=== PATIENT | female | born 1975 | race African-American/Black ===

== ENCOUNTER 2021-11-30 01:05 | Emergency (ER) | payer OTHER ==
[~2021-11-30] VITALS: Ht 152.4 cm; Wt 62.5 kg
[2021-11-30] MEDS ORDERED: ACETAMINOPHEN 325MG TABLET PO ONE (03:30)
[2021-11-30 03:36] LABS: BASOPHILS % 0.5 % (0.0-2.0); EOSINOPHILS % 0.3 % (0.0-5.0); HEMATOCRIT. 35.6 % (36.0-48.0); HEMOGLOBIN. 11.9 g/dL (12.0-16.0); LYMPHOCYTES % 15.2 % (20.0-50.0); MEAN CORPUSCULAR HEMOGLOBIN 31.8 pg (28.0-32.0); MEAN PLATELET VOLUME 7.8 fl (7.4-10.4); MONOCYTES % 6.3 % (2.0-8.0); NEUTROPHILS % 77.7 % (40.0-76.0); PLATELET 394 x1000/uL (130-400); RED BLOOD CELL COUNT 3.74 mill/uL (4.2-5.4); RED CELL DISTRIBUTION WIDTH 12.3 % (11.6-14.6)
[2021-11-30 03:56] LABS: CHLORIDE 102 mEq/L (98-107)
[2021-11-30 04:17] LABS: B-HCG QUANTITATIVE 49627 mIU/mL (<3)
[2021-11-30 05:41] VITALS: BP 147/65
[2021-11-30] MEDS ORDERED: TOPUD MT (21:37)
== END 2021-11-30 05:43 | disposition home or self-care (01) ==
LOC: ER 01:05
DX: O26.891 Other specified pregnancy related conditions, first trimester (principal); Z3A.11 11 weeks gestation of pregnancy; E11.9 Type 2 diabetes mellitus without complications; Z98.890 Other specified postprocedural states
CPT/HCPCS: 36415; 76705; 76801; 76815; 80053; 81025; 82962; 84702; 85025; 86850; 86900; 93005; 93880; 99284

== ENCOUNTER 2021-11-30 14:51 | Emergency (ER) | payer OTHER ==
[~2021-11-30] VITALS: Ht 152.4 cm; Wt 62.5 kg
[2021-11-30] MEDS ORDERED: ACETAMINOPHEN 325MG TABLET PO STA (16:47)
[2021-11-30] MEDS ORDERED: ONDANSETRON HCL 4MG/2ML INJ IV STA (16:57)
[2021-11-30] MEDS ORDERED: MORPHINE SULFATE 4 MG/ML CPJ (NOT FOR IM USE) IV STA (16:57)
[2021-11-30] MEDS ORDERED: SODIUM CHLORIDE 0.9% 1,000 ML IV ONE (17:00)
[2021-11-30 17:19] LABS: CLARITY URINE CLEAR (CLEAR); COLOR URINE YELLOW (YELLOW); KETONES URINE 2+ (NEGATIVE); LEUKOCYTE ESTERASE URINE NEGATIVE (NEGATIVE); NITRITE URINE NEGATIVE (NEGATIVE); OCCULT BLOOD URINE NEGATIVE (NEGATIVE); PH URINE 5.5 (4.5-8.0); PROTEIN URINE TRACE (NEGATIVE); SPECIFIC GRAVITY URINE 1.032 (1.005-1.030)
[2021-11-30 17:31] VITALS: BP 139/84
[2021-11-30 17:52] LABS: CHLORIDE 101 mEq/L (98-107)
[2021-11-30 17:55] LABS: BASOPHILS % 0.4 % (0.0-2.0); HEMATOCRIT. 37.8 % (36.0-48.0); HEMOGLOBIN. 12.8 g/dL (12.0-16.0); LYMPHOCYTES % 10.6 % (20.0-50.0); MEAN CORPUSCULAR HEMOGLOBIN 32.3 pg (28.0-32.0); MEAN CORPUSCULAR VOLUME 94.8 fL (81.0-99.0); MEAN PLATELET VOLUME 7.6 fl (7.4-10.4); MONOCYTES % 4.9 % (2.0-8.0); NEUTROPHILS % 84.1 % (40.0-76.0); PLATELET 400 x1000/uL (130-400); RED BLOOD CELL COUNT 3.98 mill/uL (4.2-5.4); RED CELL DISTRIBUTION WIDTH 12.5 % (11.6-14.6)
[2021-11-30 18:16] LABS: B-HCG QUANTITATIVE 47455 mIU/mL (<3)
[2021-11-30] MEDS ORDERED: TOPUD MT ×2 (21:37)
== END 2021-11-30 22:08 | disposition home or self-care (01) ==
LOC: ER 14:51
DX: O34.11 Maternal care for benign tumor of corpus uteri, first trimester (principal); Z3A.11 11 weeks gestation of pregnancy
CPT/HCPCS: 36415; 72195; 74181; 76801; 76817; 80053; 81003; 83690; 84702; 85025; 86850; 86900; 86901; 96361; 96374; 96375; 99284; J2270; J2405; J7030

== ENCOUNTER 2022-02-13 15:02 | Observation (INO) | payer OTHER ==
[~2022-02-13] VITALS: Ht 154.9 cm; Wt 63.5 kg
[~2022-02-13 15:02] MED LIST: TOPUD MT
[2022-02-13 17:32] LABS: BASOPHILS % 0.5 % (0.0-2.0); EOSINOPHILS % 0.5 % (0.0-5.0); HEMATOCRIT. 34.4 % (36.0-48.0); HEMOGLOBIN. 11.7 g/dL (12.0-16.0); LYMPHOCYTES % 16.4 % (20.0-50.0); MEAN CORPUSCULAR HEMOGLOBIN 32.5 pg (28.0-32.0); MEAN CORPUSCULAR VOLUME 95.4 fL (81.0-99.0); MONOCYTES % 6.3 % (2.0-8.0); NEUTROPHILS % 76.3 % (40.0-76.0); PLATELET 358 x1000/uL (130-400); RED BLOOD CELL COUNT 3.61 mill/uL (4.2-5.4); RED CELL DISTRIBUTION WIDTH 12.8 % (11.6-14.6)
[2022-02-13 17:51] LABS: CLARITY URINE CLOUDY (CLEAR); COLOR URINE YELLOW (YELLOW)
[2022-02-13 17:52] LABS: KETONES URINE 1+ (NEGATIVE); LEUKOCYTE ESTERASE URINE NEGATIVE (NEGATIVE); NITRITE URINE NEGATIVE (NEGATIVE); OCCULT BLOOD URINE 3+ (NEGATIVE); PROTEIN URINE TRACE (NEGATIVE); UROBILINOGEN URINE 0.2 E.U./dL (0.2-1.0)
== END 2022-02-13 19:00 | disposition home or self-care (01) ==
LOC: 8 EST LDRP 15:02
PROVIDERS: ADMIT Obstetrics & Gynecology; ATTEND Obstetrics & Gynecology
DX: O46.92 Antepartum hemorrhage, unspecified, second trimester (principal); O62.9 Abnormality of forces of labor, unspecified; O34.12 Maternal care for benign tumor of corpus uteri, second trimester; D25.9 Leiomyoma of uterus, unspecified; Z3A.21 21 weeks gestation of pregnancy
CPT/HCPCS: 36415; 59025; 76805; 81003; 85025; G0378; 99281